=== PATIENT | male | born 1975 | race Caucasian/White ===

== ENCOUNTER 2017-10-25 07:15 | Inpatient (IN) | payer OTHER ==
[~2017-10-25 07:15] MED LIST: BUPI/epINEPH/KETOROLAC IU ONE; NS IV ONE; POVIDONE-IODINE 20 ML in SODIUM CL IRRIG SOLUTION 500 ML IRR ONE; ROPIVACAINE 0.2% 80 MG, EPINEPHrine 0.2 MG, KETOROLAC TROMETHAMINE 30 MG in SYRINGE 0 ML IU ONE; TRANEXAMIC ACID IV ONE
[2017-10-25] MEDS ORDERED: ceFAZolin 2 GM/SWFI 2 GM/20 ML SYR IVP ONE (08:11)
[2017-10-25] MEDS ORDERED: GABAPENTIN 300 MG CAP PO ONE (08:11)
[2017-10-25] MEDS ORDERED: ONDANSETRON 4 MG/2 ML VIAL IVP ONE (08:11)
[2017-10-25] MEDS ORDERED: DEXAMETHASONE 4 MG/ML VIAL IVP ONE (08:11)
[2017-10-25] MEDS ORDERED: ACETAMINOPHEN 325 MG TAB PO ONE (08:11)
[2017-10-25] MEDS ORDERED: FAMOTIDINE 20 MG TAB PO ONE (08:11)
[2017-10-25] MEDS ORDERED: LR 1,000 ML IV ONE (08:16)
[2017-10-25] MEDS ORDERED: ceFAZolin 1 GM/5 ML SYR ONE (11:08)
--- NOTE | 2017-10-25 14:46 | PDHPUP ---
History & Physical Update H&P update statement: This history and physical update is based on an assessment of the patient which was completed after admission or registration (within 24 hours), but prior to the surgery/procedure. H&P update: H&P reviewed & patient examined
[2017-10-25] MEDS ORDERED: ONDANSETRON 4 MG/2 ML VIAL ONE (14:53)
[2017-10-25] MEDS ORDERED: DEXAMETHASONE 4 MG/ML VIAL ONE (14:54)
[2017-10-25] MEDS ORDERED: GABAPENTIN 300 MG CAP ONE (14:54)
[2017-10-25] MEDS ORDERED: ACETAMINOPHEN 325 MG TAB ONE (14:54)
[2017-10-25] MEDS ORDERED: FAMOTIDINE 20 MG TAB ONE (14:54)
[2017-10-25] MEDS ORDERED: ceFAZolin 2 GM/SWFI 20 ML SYR IVP ONE (14:54)
[2017-10-25] MEDS ORDERED: LIDOCAINE 1% 2 ML INJ ONE (15:01)
[2017-10-25] MEDS ORDERED: CHLORHEXIDINE GLUC HIBICLENS 118 ML BTL TP ONE (15:01)
[2017-10-25] MEDS ORDERED: MIDAZOLAM 2 MG/2 ML VIAL IVP ONE (15:24)
--- NOTE | 2017-10-25 15:26 | PDANEPAE ---
ANE History of Present Illness left hip oa ANE Past Medical History - Cardiovascular History Hx Hypertension: No Hx Arrhythmias: No Hx Chest Pain: No Hx Coronary Artery / Peripheral Vascular Disease: No Hx CHF / Valvular Disease: No Hx Palpitations: No - Pulmonary History Hx COPD: No Hx Asthma/Reactive Airway Disease: No Hx Recent Upper Respiratory Infection: No Hx Oxygen in Use at Home: No Hx Sleep Apnea: No Sleep Apnea Screening Result - Last Documented: Negative - Neurologic History Hx Cerebrovascular Accident: No Hx Seizures: No Hx Dementia: No - Endocrine History Hx Diabetes: No - Renal History Hx Renal Disorders: No - Liver History Hx Hepatic Disorders: No - Neurological & Psychiatric Hx Hx Neurological and Psychiatric Disorders: No - Cancer History Hx Cancer: No - Congenital Disorder History Hx Congenital Disorders: No - GI History Hx Gastrointestinal Disorders: No - Other Health History Other Health History: OSTEOARTHRITIS - Chronic Pain History Chronic Pain: Yes (LT HIP) - Surgical History Prior Surgeries: APPENDECTOMY. KAYLA LEE Review of Systems Review of systems is: negative Review of Systems: - Exercise capacity Exercise capacity: >=4 METS METS (RN): 4 METS ANE Patient History - Allergies Allergies/Adverse Reactions: No Known Allergies Allergy (Unverified 09/16/17 10:31) - Home Medications Home Medications: NK [No Known Home Meds] 09/16/17 [Last Taken Unknown] - NPO status NPO Status: no food or drink >8 hours NPO Since - Liquids (Date): 10/25/17 NPO Since - Liquids (Time): 04:30 NPO Since - Solids (Date): 10/24/17 NPO Since - Solids (Time): 23:00 - Anes Hx Anes Hx: no prior problems - Smoking Hx Smoking Status: Never smoked - Alcohol Use Alcohol Use: Occasionally - Family Anes Hx Family Anes Hx: none ANE Labs/Vital Signs - Vital Signs Blood Pressure: 158/97 Heart Rate: 54 Respiratory Rate: 18 O2 Sat (%): 97 Height: 169 cm Weight: 77.111 kg ANE Physical Exam - Airway Neck exam: FROM Mallampati Score: Class 1 Mouth exam: normal dental/mouth exam - Pulmonary Pulmonary: no respiratory distress - Cardiovascular Cardiovascular: regular rate and rhythym - ASA Status ASA Status: I ANE Anesthesia Plan Anesthesia Plan: spinal
[2017-10-25] MEDS ORDERED: LIDOCAINE 2% 5 ML SDV ONE (15:33)
[2017-10-25] MEDS ORDERED: PROPOFOL/EMULSION 500 MG/50 ML BOTTLE IV ONE ×2 (15:33→16:38)
[2017-10-25] MEDS ORDERED: fentaNYL 100 MCG/2 ML INJ ONE (16:13)
[2017-10-25] MEDS ORDERED: PROMETHAZINE HCL 25 MG SUPPR PR PRN (16:18)
[2017-10-25] MEDS ORDERED: ONDANSETRON 4 MG/2 ML VIAL IVP PRN ×2 (16:18→18:09)
[2017-10-25] MEDS ORDERED: CYCLOBENZAPRINE 10 MG TAB PO PRN (16:18)
[2017-10-25] MEDS ORDERED: KETOROLAC 30 MG/1 ML SDV IVP PRN (16:18)
[2017-10-25] MEDS ORDERED: NS 500 ML IV PRN (16:18)
[2017-10-25] MEDS ORDERED: PROMETHAZINE HCL 25 MG/ML INJ IVP PRN ×2 (16:18→18:09)
[2017-10-25] MEDS ORDERED: ONDANSETRON DISINTEGRATING 4 MG TAB PO PRN (16:18)
[2017-10-25] MEDS ORDERED: DIPHENOXYLATE/ATROPINE LOMOTIL 1 TAB PO PRN (16:18)
[2017-10-25] MEDS ORDERED: POLYETHYLENE GLYCOL 3350 17 GM PKT PO PRN (16:18)
[2017-10-25] MEDS ORDERED: traMADol 50 MG TAB PO PRN (16:18)
[2017-10-25] MEDS ORDERED: LACTULOSE 20 GM/30 ML UDCUP PO PRN (16:18)
[2017-10-25] MEDS ORDERED: TEMAZEPAM 15 MG CAP PO PRN (16:18)
[2017-10-25] MEDS ORDERED: METOCLOPRAMIDE 10 MG/2 ML VIAL IVP PRN (16:18)
[2017-10-25] MEDS ORDERED: MAGNESIUM HYDROXIDE 30 ML UDCUP PO PRN (16:18)
[2017-10-25] MEDS ORDERED: BISACODYL 10 MG SUPP PR PRN (16:18)
[2017-10-25] MEDS ORDERED: diphenhydrAMINE 25 MG CAP PO PRN (16:18)
[2017-10-25] MEDS ORDERED: LR 1,000 ML IV SCH (16:30)
[2017-10-25] MEDS ORDERED: NALOXONE HCL 0.4 MG/ML INJ IVP PRN (18:09)
[2017-10-25] MEDS ORDERED: fentaNYL 100 MCG/2 ML INJ IVP PRN (18:09)
[2017-10-25] MEDS ORDERED: ALBUTEROL 3 ML DEYVIAL IH PRN (18:09)
[2017-10-25] MEDS ORDERED: DIAZEPAM 5 MG/ML 1 ML SYR IVP PRN (18:09)
[2017-10-25] MEDS ORDERED: HYDROCODONE/APAP 5/325 TAB PO PRN (18:09)
[2017-10-25] MEDS ORDERED: oxyCODONE IR 5 MG TAB PO PRN (18:09)
[2017-10-25] MEDS ORDERED: HYDROmorphONE/DILAUDID 2 MG/ML INJ IVP PRN (18:09)
[2017-10-25] MEDS ORDERED: ACETAMINOPHEN 500 MG TAB PO PRN (18:09)
--- NOTE | 2017-10-25 18:09 | POSTANESTH ---
Post Anesthetic Evaluation Cardiovascular Status: Normal, Stable Respiratory Status: Normal, Stable Level of Consciousness/Mental Status: Can Participate in Eval Pain Control: Adequate, Prn Tx Ordered Nausea/Vomiting Control: Adequate, Prn Tx Ordered Complications Possibly Related to Anesthesia: None Noted
--- NOTE | 2017-10-25 18:46 | POSTOPPROG ---
Post Op Note Date of Operation: 10/25/17 Surgeon: Marco Solis Sod Cutter: Finn Anesthesiologist: Dr. Charles Addison Anesthesia: IV Sedation, Spinal Post-op Diagnosis: Left hip degenerative arthritis Procedure: Left hip [place] hip resurfacing arthroplasty Inf/Abcess present in the surg proc area at time of surgery?: No EBL: 100-500
[2017-10-25] MEDS: FAMOTIDINE 20 MG TAB PO SCH (20:57)
[2017-10-25] MEDS: TRANEXAMIC ACID 650 MG TAB PO SCH (20:57)
[2017-10-25] MEDS: ASPIRIN 325 MG TAB PO SCH (20:57)
[2017-10-25] MEDS: SENNOSIDES/DOCUSATE SODIUM TAB PO SCH (20:57)
[2017-10-25] MEDS: ACETAMINOPHEN 325 MG TAB PO SCH ×2 (22:17→23:38)
[2017-10-25] MEDS: ceFAZolin 2 GM/SWFI 2 GM/20 ML SYR IVP SCH (23:39)
--- NOTE | 2017-10-26 02:00 | GOP ---
[f rep st] OPERATIVE REPORT DATE OF OPERATION: 10/25/2017 SURGEON: Marco Solis MD STAGE DRIVER: Hal Beard [facility] Don Stephens MD ANESTHESIA: Combination of Marcaine spinal and IV sedation. ANESTHESIOLOGIST: Charles Addison MD PREOPERATIVE DIAGNOSIS: Left hip degenerative arthritis. POSTOPERATIVE DIAGNOSIS: Left hip degenerative arthritis. PROCEDURE PERFORMED: Left hip Fidelina hip resurfacing arthroplasty. FINDINGS: DESCRIPTION OF PROCEDURE: The patient was given 2 g of IV Ancef within 60 minutes of surgery. He als o received IV tranexamic acid at a dose of 20 mg/kg. He was placed on the operating room table and gi geno spinal anesthesia with Marcaine by Dr. Addison. He was then placed supine and given IV sedation. A Rose catheter was not used. He wore a compressive stocking and SCD on the nonoperative leg. The p atient was rolled to the right lateral decubitus position. An axillary roll was used, and all pressur e points were carefully padded. The position was secured with the pegboard table attachment. I was ca reful to lock his pelvis in a vertical position. His perineum was isolated with plastic adhesive drap es. His left hip and left lower extremity were prepped with ChloraPrep. They were draped free using s terile sheets, stockinette, and Ioban plastic adhesive drape. The [employer] time-out was performed to verify the correct patient identity and the c orrect surgical side and site. The [place] time-out was also performed. I made a 7-inch straight oblique posterolateral hip skin incision. The subcutaneous tissues were annamaria ply divided, and hemostasis was obtained using electrocautery. The fascia trey was identified and spl it along the axis of its fibers. I then curved posteriorly and proximally, and split the fascia of gl uteus aliza and bluntly split the muscle fibers in line with their orientation. His sciatic nerve w as identified and protected throughout the procedure. The Charnley self-retaining retractor was inser austen. The external rotators and the posterior hip capsule were divided as separate layers at the base of the femoral neck, tagged, and reflected posteriorly. The gluteus aliza tendon was divided and ta gged in order to improve exposure and release tension on the sciatic nerve. His hip was dislocated po steriorly. I used a sizing gauge to check the diameter of the neck and concluded that 50 mm was the p trista head size. I performed a complete circumferential capsulotomy. I was able to retract the femora l head anteriorly and superiorly, and hold it out of place with appropriate retractors. The remnant o f the damaged labrum was excised. His acetabulum was reamed sequentially up to 56 mm. I selected the [place] monoblock porous-coated acetabular component with an outside diameter of 56 mm. This was f irmly impacted and was a very tight fit. I was careful to determine proper inclination and anteversio n. I used the transverse acetabular ligament and other acetabular bony landmarks to help me determine proper cup orientation. Small posterior inferior osteophytes were removed with a rongeur. I was care ful to leave a good lip of bone and capsule extending beyond the anterior-inferior lip of the metal c up. I then returned to preparation of the femoral head. Using appropriate jigs and guides, I inserted a g uide pin into the femoral head and neck. I was careful to position it in such a way there would be no notching of the neck. The large sterile metal goniometer was used to check the neck-shaft angle. I r eamed over the guide pin and inserted the reaming guide. I then used the cylindrical reamer down to t he head and neck junction. This was followed by the flat reamer and the chamfer reamer. The head was sized for 50 mm. There was no impingement or damage to the neck. He had some small anterior neck oste ophytes which I trimmed with a rongeur. I drilled a small hole in the lesser trochanter and inserted a suction cannula to create negative pressure in the medullary canal. Small holes were drilled on the flat and chamfer surfaces of the prepared head for cement anchors. The head was thoroughly cleaned w ith the pulsating lavage and carefully dried. I used a CarboJet device to blow dry the cancellous jacobo faces. A single batch of Simplex cement with tobramycin was mixed. At about 50 seconds, I poured the liquid cement into the head component, inserted it onto the femoral head, and impacted it into place. Excess cement was removed before it hardened. I incarcerated a small edge of the lap under the femor al head component. The fit was so tight that this could not be extracted. I trimmed it off at the edg e of the head implant. The acetabulum was irrigated, cleaned, and inspected, and the hip was reduced. Stability and range of motion were checked. I placed my finger along the anterior aspect of the acetabular component and fl exed the hip to 110 degrees. There was no anterior impingement. The suction cannula on the lesser tro chanter was removed. The wound was thoroughly irrigated with a dilute Betadine solution. 40 mL of the joint anesthetic cocktail were injected into the capsule, the deep musculature, and the subcutaneous tissues along the skin edges. His sciatic nerve was reinspected and looked unharmed. The external rotators and the posterior hip ca psule were repaired in separate layers with #2 FiberWire sutures through drill holes in the greater t rochanter. This provided a strong posterior capsular and external rotator repair. The gluteus aliza tendon was repaired with two #2 [id number] FiberWire sutures. The fascia trey was repaired firs t with 2 interrupted [id number] #2 FiberWire sutures followed by a running #2 barbed Ethicon Str atafix PDO suture. Subcutaneous tissues were closed with a running 0 barbed Ethicon Stratafix Monoder m suture. The skin was closed with a running 3-0 barbed Ethicon Stratafix Monoderm subcuticular sutur e. The skin edges were reapproximated and sealed with Dermabond glue. The wound was covered with a la rge sterile Mepilex waterproof dressing. The Mepilex dressing was also applied to the sacral area. The estimated blood loss was about 400 mL. I used the Fidelina hip resurfacing system. The acetabular component was 56 mm in diameter and pres s-fit. The femoral head was 50 mm and cemented. He was awakened from anesthesia and rolled to the supine position on his [facility]. A long-leg compressive stocking and SCD were applied to the operative leg. He wore a stocking and SCD on the opp osite leg during the procedure. An abduction pillow was placed between his knees. He was awakened fro m anesthesia, transferred to his [facility], and taken to PACU in satisfactory condition. There were no recognized intraoperative complications. The sponge and needle count were correct on 2 occasions. Hal Beard and acted as surgical assistants. Their assistance was a medical necessity for safe completion of the procedure. /[id number]/MODL
[2017-10-26] MEDS: oxyCODONE IR 5 MG TAB PO PRN ×3 (04:19→11:38)
[2017-10-26] MEDS: TRANEXAMIC ACID 650 MG TAB PO SCH (05:49)
[2017-10-26] MEDS: ACETAMINOPHEN 325 MG TAB PO SCH ×2 (05:49→11:37)
[2017-10-26] MEDS: FAMOTIDINE 20 MG TAB PO SCH (08:20)
[2017-10-26] MEDS: SENNOSIDES/DOCUSATE SODIUM TAB PO SCH (08:22)
[2017-10-26] MEDS: ASPIRIN 325 MG TAB PO SCH (08:23)
[2017-10-26] MEDS: ceFAZolin 2 GM/SWFI 2 GM/20 ML SYR IVP SCH (08:24)
--- NOTE | 2017-10-26 08:39 | PDMN ---
Medical Necessity Medical necessity: S565 hip resurfacing 2 days: L hip [place] hip resurfacing arthroplasty
[2017-10-26] MEDS ORDERED: FERROUS SULFATE 140 MG TAB.ER PO SCH (09:00)
--- NOTE | 2017-10-26 09:36 | SOAPPROG ---
SOAP Progress Note Assessment/Plan: Assessment: Afebrile. Awake and alert. Moderate pain. Dsg is dry. H/H is good. Sciatic nerve intact. Films look good. Has been walking in room. Plan:PT today. DC later today. 10/26/17 09:35 Objective: Vital Signs Temp Pulse Resp BP Pulse Ox 36.7 C 72 16 136/68 H 98 10/26/17 07:33 10/26/17 07:33 10/26/17 07:33 10/26/17 07:33 10/26/17 07:33 Laboratory Results 10/26/17 04:17 10/25/17 10/26/17 10/27/17 05:59 05:59 05:59 Intake Total 2900 400 Output Total 900 Balance 2000 400 ICD10 Worksheet Patient Problems: Problems Problem Status Onset Osteoarthritis of left hip Acute
--- NOTE | 2017-10-26 09:56 | GDS ---
[f rep st] DISCHARGE SUMMARY ADMISSION DIAGNOSIS: Left hip advanced degenerative arthritis. DISCHARGE DIAGNOSIS: Left hip advanced degenerative arthritis. OPERATIONS PERFORMED: October 25, 2017, a left hip Fidelina hip resurfacing arthroplasty. POSTOPERATIVE COMPLICATIONS: None. CONDITION ON DISCHARGE: Improved. DESCRIPTION OF HOSPITAL COURSE: The patient was admitted to the hospital on the morning of surgery. His admission CBC was 7760. Hemoglobin and hematocrit were 17.6 and 49.5. The same day, under a co mbination of Marcaine, spinal, and IV sedation, he underwent a left hip [place]idelina hip resurfacing ar throplasty. Postoperatively, he was treated with multimodal DVT prophylaxis, including aspirin and e susie mobilization. On the first postoperative day his hemoglobin and hematocrit were 14.2 and 40.8. He was seen by Physical Therapy and made good progress with ambulation and stairs. By the time of d ischarge, he was afebrile, his wound was dry, and he was independent in walking. DISPOSITION: Patient is discharged to a local hotel. He may progress to full weightbearing on the l eft as tolerated. Use PASHA stockings for 1 week. Use an abduction pillow in bed for 3 weeks. He has prescriptions for oxycodone, tramadol, and Celebrex for pain. Continue aspirin 325 mg p.o. daily fo r 21 days. I will see him back in the office on November 05. If there are any problems, he is to call me at the office. /[id number]/MODL
[2017-10-26 11:29] VITALS: BP 130/79
--- NOTE | 2017-10-26 12:16 | ASMTCMCOM ---
CM Note CM Note Notes: PT rec home. Pt medically stable for d/c, no CM d/c needs identified. Date Signed: 10/26/2017 12:15 PM Electronically Signed By:RK Arreola
== END 2017-10-26 13:39 | disposition home or self-care (01) | DRG 470 ==
LOC: F3N 11:31
PROVIDERS: ADMIT Orthopaedic Surgery; ATTEND Orthopaedic Surgery
PROC: 0SU Lower Joints, Supplement (ICD-10-PCS; principal; 2017-10-25 13:15)
DX: M16.12 Unilateral primary osteoarthritis, left hip (principal)
CPT/HCPCS: 97110-GP; 97161-GP; 97166-GO; 97535-GO; C1713; J0171; J0690; J1100; J1200; J1885; J2250; J2405; J2704; J3010